=== PATIENT | male | born 1985 | race Two or more races ===

== ENCOUNTER 2018-01-17 07:11 | Emergency (ER) | payer MEDICAID ==
[~2018-01-17] VITALS: Ht 175.3 cm; Wt 136.1 kg
[2018-01-17 07:56] VITALS: BP 146/78
[2018-01-17 07:58] LABS: Hematocrit 42.7 % (41.0-53.0); Hemoglobin 14.8 g/dL (13.5-17.5); Mean Corpuscular Hemoglobin 32.3 pg (28.0-32.0); Mean Corpuscular Hgb Conc. 34.7 g/dL (32.0-36.0); Platelet Count (auto) 186 10^3/uL (140-450); Red Blood Cells 4.59 10^6/uL (4.5-5.90); Red Cell Distribution Width 12.7 % (11.8-14.3); White Blood Cell 4.9 10^3/uL (4.4-10.8)
[2018-01-17 08:06] LABS: Band Neutrophils % (manual) 0; Basophils % (manual) 0 (0.0-2.0)
[2018-01-17 08:07] LABS: Blast Cells 0; Metamyelocytes % 0; Myelocytes % 0; Promyelocytes % 0
[2018-01-17] MEDS ORDERED: SODIUM CHLORIDE 0.9% 1,000 ML IV ONE (08:11)
[2018-01-17] MEDS ORDERED: KETOROLAC TROMETH 30 MG/ML 1ML VIAL IV ONE (08:15)
[2018-01-17 08:56] LABS: Albumin 3.3 g/dL (3.4-5.0); BUN/Creatinine Ratio 8.4; Bilirubin, Total 0.2 mg/dL (0.2-1.0); Calcium 8.2 mg/dL (8.5-10.1); Magnesium 2.1 mg/dL (1.6-2.6)
[2018-01-17 09:05] LABS: Eosinophils % (manual) 10 (0-7); Lymphocytes % (manual) 52 (10.0-50.0); Monocytes % (manual) 5 (0-12); Reactive Lymphocytes 1
[2018-01-17 10:16] LABS: Urine Bacteria NONE SEEN /hpf (None Seen); Urine Blood Negative /uL (Negative); Urine Mucus FEW (None Seen); Urine Specific Gravity 1.025 (1.001-1.035); Urine WBC 1 /hpf (0 - 3)
== END 2018-01-17 10:54 | disposition home or self-care (01) ==
LOC: ER 07:11
DX: N28.1 Cyst of kidney, acquired (principal)
CPT/HCPCS: 36415; 74176; 80053; 81001; 82150; 83690; 83735; 85007; 85027; 96361; 96374; 99285; J1885; J7030

== ENCOUNTER 2021-01-08 09:17 | Emergency (ER) | payer MEDICAID ==
[~2021-01-08] VITALS: Ht 180.3 cm; Wt 131.5 kg
[2021-01-08 10:45] LABS: Urine Bacteria NONE SEEN /hpf (None Seen); Urine Blood Negative /uL (Negative); Urine Mucus MANY (None Seen); Urine Specific Gravity 1.043 (1.001-1.035); Urine WBC 2 /hpf (0 - 3)
[2021-01-08] MEDS ORDERED: KETOROLAC TROMETH 60MG/2ML VIAL IM ONE (11:00)
[2021-01-08 11:04] LABS: Basophils # (auto) 0 10 ^3/uL (0-0.2); Basophils % (auto) 0.7 % (0.0-2.0); Eosinophils # (auto) 0.1 10 ^3/uL (0-0.8); Eosinophils % (auto) 1.6 % (0.0-7.0); Hematocrit 47.1 % (41.0-53.0); Hemoglobin 16.5 g/dL (13.5-17.5); Lymphocytes # (auto) 2.3 10 ^3/uL (0.4-5.4); Mean Corpuscular Hemoglobin 32.7 pg (28.0-32.0); Mean Corpuscular Hgb Conc. 35.1 g/dL (32.0-36.0); Mean Corpuscular Volume 93.1 fL (80.0-100.0); Monocytes # (auto) 0.7 10 ^3/uL (0-1.3); Monocytes % (auto) 13.3 % (0.0-12.0); Neutrophils % (auto) 39.4 % (37.0-80.0); Nucleated Red Blood Cells % 0.2 %; Platelet Count (auto) 223 10^3/uL (140-450); Red Blood Cells 5.06 10^6/uL (4.5-5.90)
[2021-01-08 11:22] LABS: BUN/Creatinine Ratio 10.6; Calcium 8.3 mg/dL (8.5-10.1); Potassium 3.8 mmol/L (3.5-5.1)
[2021-01-08 11:35] LABS: Amphetamine Screen, Urine POSITIVE (NEGATIVE); Barbiturate Scree,Urine NEGATIVE (NEGATIVE); Benzodiazephine Screen, Urine NEGATIVE (NEGATIVE); Cannabinoid Screen, Urine POSITIVE (NEGATIVE); Cocaine Screen, Urine NEGATIVE (NEGATIVE); Opiate Scree,Urine NEGATIVE (NEGATIVE); Phencyclidine Screen, Urine NEGATIVE (NEGATIVE)
[2021-01-08 11:58] VITALS: BP 132/70
== END 2021-01-08 12:33 | disposition home or self-care (01) ==
LOC: ER 09:17
DX: N39.0 Urinary tract infection, site not specified (principal); N40.0 Benign prostatic hyperplasia without lower urinary tract symptoms; K40.20 Bilateral inguinal hernia, without obstruction or gangrene, not specified as recurrent; F15.10 Other stimulant abuse, uncomplicated; F17.210 Nicotine dependence, cigarettes, uncomplicated
CPT/HCPCS: 36415; 74176; 80048; 80307; 81001; 85025; 93005; 96372; 99285; J1885